=== PATIENT | male | born 1985 | race Caucasian/White ===

== ENCOUNTER 2019-09-11 18:45 | Inpatient (IN) | payer OTHER ==
[~2019-09-11] VITALS: Ht 170.2 cm; Wt 66.2 kg
[2019-09-11 18:59] VITALS: BP 129/97
[2019-09-11 19:25] LABS: ABSOLUTE LYMPHOCYTES 0.4 thou/uL (0.8-5.3); HEMOGLOBIN 15.5 gm/dL (14.0-18.0); MCHC 33.5 g/dL (28.0-37.0); RBC 4.69 mil/uL (4.50-6.00); RDW-CV 14.9 % (10.5-14.5)
[2019-09-11 19:26] LABS: ABSOLUTE MONOCYTES 0.7 thou/uL (0.0-1.2); ABSOLUTE NEUTROPHILS 4.9 thou/uL (1.6-8.1); BASOPHILS 0.1 %; EOSINOPHILS 0.1 %; HEMATOCRIT 46.3 % (42.0-52.0); LYMPHOCYTES 6.3 %; MCH 33.1 pg (26.0-34.0); MCV 98.7 fL (80.0-100.0); MONOCYTES 11.4 %; MPV 10.6 fl. (7.2-11.1); NUCLEATED RBCS 0 /100WBC; POLYS 82.1 %
[2019-09-11 19:32] LABS: CALCIUM 10.2 mg/dL (8.5-10.1); CREATININE 2.4 mg/dL (0.6-1.3); POTASSIUM 4.4 mmol/L (3.5-5.1)
[2019-09-11 19:37] LABS: ALBUMIN 5.5 g/dL (3.4-5.0); TOTAL BILIRUBIN 2.6 mg/dL (<0.1-1.0); TOTAL PROTEIN 10.5 g/dL (6.4-8.2)
[2019-09-11 19:58] LABS: PLATELET COUNT* 48 thou/uL (150-400)
[2019-09-11 20:19] LABS: APTT 25.2 Seconds (25.0-31.3); PROTIME 10.3 Seconds (9.20-11.50)
[2019-09-11 21:29] VITALS: BP 165/98
[2019-09-11 22:00] VITALS: BP 155/104
--- NOTE | 2019-09-11 22:30 | NUR ---
RECEIVED REPORT AND ADMITTED TO ROOM. SEE ADMISSION AND HX. PT CONT TO C/O ABD PAIN, STATES HITS LIKE A HARD CRAMP THEN GOES AWAY. OFFERED PAIN MED BUT NOT AT THIS TIME. TELEMETRY ON SR TO ST. WILL CONT TO MONITOR AND ASSIST NEEDED.
[2019-09-12 00:06] VITALS: BP 149/101
[2019-09-12 00:17] LABS: URINE BLOOD 1+ (Negative); URINE CLARITY CLEAR; URINE COLOR YELLOW; URINE GLUCOSE-RANDOM NEGATIVE (Negative); URINE LEUKOCYTES-REFLEX NEGATIVE (Negative); URINE NITRITE-REFLEX NEGATIVE (Negative); URINE PROTEIN 3+ (Negative); URINE SPECIFIC GRAVITY 1.015 (1.005-1.030); URINE UROBILINOGEN 0.2 E.U./dl (0.2-1.0)
[2019-09-12 00:20] LABS: URINE BILIRUBIN 3+ (Negative); URINE KETONES 3+ (Negative)
[2019-09-12 00:23] LABS: ACETEST (KETONE CONFIRMATORY) Moderate (Negative); ICTOTEST (BILI CONFIRMATORY) Positive (Negative)
[2019-09-12 00:27] LABS: HYALINE CASTS 4-10 Moderate /LPF (None Seen); SQUAMOUS NONE SEEN /LPF (0-3)
[2019-09-12 00:29] LABS: BACTERIA-REFLEX 1-9 Few /HPF (None Seen); URINE RBC 3-10 Few /HPF (0-2); URINE WBC-REFLEX 0-5 Rare /HPF (0-5)
[2019-09-12 00:30] LABS: CRYSTALS None Seen /LPF (None Seen)
[2019-09-12 04:33] VITALS: BP 147/104
--- NOTE | 2019-09-12 06:00 | NUR ---
SLEPT ALL NIGHT. WHEN UP TO BR HR INCREASED TO 160'S BUT RETURNED TO BED DOWN TO 90'S. NO FURTHER C/O DISCOMFORT. HS GOALS OF REST AND SAFETY ACHIEVED. HOURLY ROUNDING OBSERVED.
[2019-09-12 08:19] LABS: ABSOLUTE LYMPHOCYTES 0.5 thou/uL (0.8-5.3); ABSOLUTE MONOCYTES 0.5 thou/uL (0.0-1.2); ABSOLUTE NEUTROPHILS 2.8 thou/uL (1.6-8.1); BASOPHILS 0.3 %; EOSINOPHILS 0.3 %; LYMPHOCYTES 13.5 %; MCH 33.7 pg (26.0-34.0); MCHC 34.4 g/dL (28.0-37.0); MCV 98.1 fL (80.0-100.0); MPV 10.5 fl. (7.2-11.1); NUCLEATED RBCS 0 /100WBC; POLYS 73.9 %; RBC 3.88 mil/uL (4.50-6.00); RDW-CV 14.9 % (10.5-14.5); WBC 3.8 thou/uL (4.0-11.0)
[2019-09-12 08:31] LABS: HEMOGLOBIN 13.1 gm/dL (14.0-18.0)
[2019-09-12 08:33] LABS: PLATELET COUNT* 31 thou/uL (150-400)
[2019-09-12 08:41] LABS: ALBUMIN 4.2 g/dL (3.4-5.0); CALCIUM 8.9 mg/dL (8.5-10.1); CREATININE 1.5 mg/dL (0.6-1.3); POTASSIUM 3.9 mmol/L (3.5-5.1); TOTAL BILIRUBIN 2.3 mg/dL (<0.1-1.0); TOTAL PROTEIN 8.3 g/dL (6.4-8.2)
[2019-09-12 12:24] VITALS: BP 138/98
--- NOTE | 2019-09-12 16:23 | EKG ---
[place] [address] ELECTROCARDIOGRAM REPORT Name: JASPREET MCKEON Room: [address] IN M.R.#: [id number] Admission: 09/11/19 Attend Phys: Rosa gomez Sa Discharge: Date of : 87 Date of Service: 09/11/191920 Report #: [id number] THIS REPORT FOR: //name// [facility] ED Test Date: 2019-09-11 Test Time: 19:21:18 Pat Name: JASPREET MCKEON Department: Room: [facility] Gender: M Bpm Analyst: [place] : 1985 Requested By: Mau Gonzalez Order Number: [id number] MD: Ulices Altamirano Measurements Intervals [place] Rate: 123 P: 60 W[place]: 124 QRS: 59 QRSD: 92 T: -63 QT: 306 QTc: 438 Interpretive Statements Sinus tachycardia Nonspecific T abnormalities, diffuse leads No previous ECG available for comparison Electronically Signed On 09-12-2019 16:21:26 CDT by Ulices Altamirano [email or web address] <ELECTRONICALLY SIGNED> By: Ulices Altamirano MD, [facility] 09/12/19 1621 20 20 Ulices Altamirano MD, [facility] /EPI
[2019-09-12 17:07] VITALS: BP 139/94
--- NOTE | 2019-09-12 18:30 | NUR ---
ASSUMED PT CARE AT 0700, PT A&O X4, VSS, RA, [employer] TRACING SINUS RHYTHM, UP AD BONNIE, NO S/S WITHDRAWL. PT EDUCATED ON NPO STATUS, STATES UNDERSTANDING, HOURLY ROUNDING COMPLETED.
[2019-09-12 20:00] VITALS: BP 141/93
[2019-09-13] VITALS (7 sets, daily range): BP systolic 129–152; BP diastolic 89–102
--- NOTE | 2019-09-13 05:10 | NUR ---
PT IS ABLE TO COMMUNICATE HIS NEEDS TO STAFF EFFECTIVELY. CURRENT PAIN MEDICATION REGIMEN HAS BEEN ADEQUATE FOR CONTROLLING HIS PAIN UP TO THIS TIME. HE HAS BEEN NPO PER MD ORDERS D/T PANCREATITIS; HE HAS HAD SOME ICE CHIPS-TOLERATING WELL.
[2019-09-13 05:20] LABS: HEMATOCRIT 34.7 % (42.0-52.0); HEMOGLOBIN 11.7 gm/dL (14.0-18.0); MCH 33.6 pg (26.0-34.0); MCHC 33.8 g/dL (28.0-37.0); MCV 99.3 fL (80.0-100.0); MPV 9.3 fl. (7.2-11.1); RBC 3.5 mil/uL (4.50-6.00); WBC 2.9 thou/uL (4.0-11.0)
[2019-09-13 05:40] LABS: ALBUMIN 3.5 g/dL (3.4-5.0); CALCIUM 8.6 mg/dL (8.5-10.1); CREATININE 1.2 mg/dL (0.6-1.3); MAGNESIUM 2.9 mg/dL (1.8-2.4); POTASSIUM 3.1 mmol/L (3.5-5.1); TOTAL BILIRUBIN 2.3 mg/dL (<0.1-1.0); TOTAL PROTEIN 7.2 g/dL (6.4-8.2)
[2019-09-13 09:46] LABS: CHOLESTEROL 183 mg/dL (<200); HDL CHOLESTEROL 63 mg/dL (>40); LDL CHOLESTEROL 106 mg/dL (<100); TC:HDL 2.9 Ratio (Not establshd); TRIGLYCERIDE 73 mg/dL (<150); VLDL 15 mg/dL (<40)
[2019-09-13 09:48] LABS: SERUM ASSESSMENT Clear
--- NOTE | 2019-09-13 12:44 | NUR ---
Nutrition: Pt admitted with pancreatitis. H/o heavy ETOH use. Seen for nsg risk 2 points. Pt stated he lost about 14# this week d/t N/V. He lost a little weight "last time I had a flare up too, but regained it." He is tolerating CLD now. Usual wt is ~150#. Current wt 138#. Labs: lipase 2510, albumin 3.5. He did have interest in nutrition info. Discussed plate method, general healthy eating and low Na diet with him. Provided tips on quick lunches and adding more vitamins in your foods. Pt grateful for info. Appears at low to mild risk. May benefit from outpatient nutrition counseling for good lifestyle habits.
[2019-09-13 22:07] LABS: HEMOGLOBIN 13.4 g/dL (13.0-17.7)
[2019-09-14 00:49] VITALS: BP 143/101
[2019-09-14 04:00] VITALS: BP 146/95
--- NOTE | 2019-09-14 07:51 | NUR ---
PT IS ABLE TO COMMUNICATE HIS NEEDS TOP STAFF EFFECTIVELY. CURRENT PAIN MEDICATION REGIMEN HAS BEEN ADEQUATE FOR CONTROLLING HIS PAIN UP TO THIS TIME. SERUM LIPASE LEVEL HAS INCREASED AGAIN THIS AM. CLEAR LIQUID DIET MAINTAINED OVERNIGHT.
[2019-09-14 08:31] LABS: ABSOLUTE LYMPHOCYTES 0.8 thou/uL (0.8-5.3); ABSOLUTE MONOCYTES 0.3 thou/uL (0.0-1.2); ABSOLUTE NEUTROPHILS 1.1 thou/uL (1.6-8.1); BASOPHILS 0.9 %; EOSINOPHILS 1.4 %; HEMATOCRIT 31.1 % (42.0-52.0); HEMOGLOBIN 10.7 gm/dL (14.0-18.0); LYMPHOCYTES 35.8 %; MCH 34.3 pg (26.0-34.0); MCHC 34.6 g/dL (28.0-37.0); MCV 99.3 fL (80.0-100.0); MONOCYTES 12.6 %; MPV 9.7 fl. (7.2-11.1); NUCLEATED RBCS 0 /100WBC; POLYS 49.3 %; RBC 3.13 mil/uL (4.50-6.00); RDW-CV 14.2 % (10.5-14.5); WBC 2.3 thou/uL (4.0-11.0)
[2019-09-14 08:35] LABS: PLATELET COUNT* 24 thou/uL (150-400)
[2019-09-14 14:13] VITALS: BP 138/104
[2019-09-14 16:00] VITALS: BP 150/101
--- NOTE | 2019-09-14 17:24 | NUR ---
SW met with pt and provided community resources and alcohol abuse support and counseling resources/referrals. Pt was accepting and thankful for the resources.
[2019-09-14 19:21] LABS: ABSOLUTE LYMPHOCYTES 0.6 thou/uL (0.8-5.3); ABSOLUTE MONOCYTES 0.3 thou/uL (0.0-1.2); ABSOLUTE NEUTROPHILS 1.4 thou/uL (1.6-8.1); EOSINOPHILS 1.3 %; HEMATOCRIT 32.6 % (42.0-52.0); HEMOGLOBIN 11.4 gm/dL (14.0-18.0); LYMPHOCYTES 26.8 %; MCH 34.2 pg (26.0-34.0); MCHC 35.1 g/dL (28.0-37.0); MCV 97.5 fL (80.0-100.0); MONOCYTES 13.8 %; MPV 9.7 fl. (7.2-11.1); NUCLEATED RBCS 0 /100WBC; POLYS 57.1 %; RBC 3.34 mil/uL (4.50-6.00); RDW-CV 13.6 % (10.5-14.5); WBC 2.4 thou/uL (4.0-11.0)
[2019-09-14 19:25] LABS: PLATELET COUNT* 30 thou/uL (150-400)
[2019-09-14 19:30] LABS: CALCIUM 8.6 mg/dL (8.5-10.1); CREATININE 0.8 mg/dL (0.6-1.3); POTASSIUM 3.2 mmol/L (3.5-5.1)
[2019-09-14 19:35] LABS: ALBUMIN 3.2 g/dL (3.4-5.0); DIRECT BILIRUBIN 0.5 mg/dL (<0.1-0.3); TOTAL BILIRUBIN 1.8 mg/dL (<0.1-1.0); TOTAL PROTEIN 6.7 g/dL (6.4-8.2)
[2019-09-14 20:34] VITALS: BP 152/92
[2019-09-14 21:17] LABS: APTT 25.5 Seconds (25.0-31.3); INR 1.1; PROTIME 10.9 Seconds (9.20-11.50)
[2019-09-15 00:40] VITALS: BP 148/101
[2019-09-15 04:00] VITALS: BP 139/96
[2019-09-15 04:52] LABS: HEMATOCRIT 30.6 % (42.0-52.0); HEMOGLOBIN 10.6 gm/dL (14.0-18.0); MCH 34.5 pg (26.0-34.0); MCHC 34.8 g/dL (28.0-37.0); MCV 99.2 fL (80.0-100.0); MPV 10.2 fl. (7.2-11.1); RBC 3.08 mil/uL (4.50-6.00); RDW-CV 14.1 % (10.5-14.5); WBC 2.6 thou/uL (4.0-11.0)
[2019-09-15 05:14] LABS: ALBUMIN 3.1 g/dL (3.4-5.0); CALCIUM 8.4 mg/dL (8.5-10.1); CREATININE 0.7 mg/dL (0.6-1.3); MAGNESIUM 1.8 mg/dL (1.8-2.4); POTASSIUM 3.2 mmol/L (3.5-5.1); TOTAL BILIRUBIN 1.5 mg/dL (<0.1-1.0); TOTAL PROTEIN 6.4 g/dL (6.4-8.2)
--- NOTE | 2019-09-15 07:51 | NUR ---
PT IS ABLE TO COMMUNICATE HIS NEEDS TO STAFF EFFECTIVELY. CURRENT PAIN MEDICATION REGIMEN HAS BEEN ADEQUATE FOR CONTROLLING HIS PAIN UP TO THIS TIME. HEMATOLOGY/ONCOLOGY MDs FOLLOWING. HE HAS BEEN NPO, FOR ELEVATED LIPASE, PER MD ORDER.
[2019-09-15 08:00] VITALS: BP 136/99
[2019-09-15 11:23] VITALS: BP 154/100
[2019-09-15 15:21] VITALS: BP 134/96
[2019-09-15 19:40] VITALS: BP 118/83
[2019-09-16] VITALS (7 sets, daily range): BP systolic 125–147; BP diastolic 78–101
[2019-09-16 03:08] LABS: HEPATITIS B SURFACE AG Negative (Negative)
--- NOTE | 2019-09-16 04:55 | NUR ---
ASSUMED CARE OF PT AT 1900. PT IS ALERT AND ORIENTED. VSS. PERRLA. PT IS UP AD BONNIE. PT IS IN SINUS RYTHM ON THE TELEMETRY. PT IS RESTING COMFORTABLY IN BED. RESPIRATIONS ARE EVEN AND NONLABORED. WILL CONTINUE TO MONITOR PT.
[2019-09-16 05:07] LABS: HEMATOCRIT 29.9 % (42.0-52.0); HEMOGLOBIN 10.3 gm/dL (14.0-18.0); MCH 34.1 pg (26.0-34.0); MCHC 34.5 g/dL (28.0-37.0); MCV 99.1 fL (80.0-100.0); MPV 10.4 fl. (7.2-11.1); RBC 3.02 mil/uL (4.50-6.00); RDW-CV 14.1 % (10.5-14.5); WBC 2.4 thou/uL (4.0-11.0)
[2019-09-16 05:18] LABS: CALCIUM 8.2 mg/dL (8.5-10.1); CREATININE 0.8 mg/dL (0.6-1.3); MAGNESIUM 1.6 mg/dL (1.8-2.4); TOTAL BILIRUBIN 0.8 mg/dL (<0.1-1.0); TOTAL PROTEIN 6.3 g/dL (6.4-8.2)
[2019-09-16 05:49] LABS: POTASSIUM 2.8 mmol/L (3.5-5.1)
[2019-09-16 12:18] LABS: CALCIUM 8.4 mg/dL (8.5-10.1); CREATININE 0.8 mg/dL (0.6-1.3); POTASSIUM 3.7 mmol/L (3.5-5.1)
--- NOTE | 2019-09-16 20:19 | NUR ---
ASSUMED PT CARE AT 729, FULL ASSESMENT DONE CHARTED. PT A/O X4, UP AD BONNIE, DENIES PAIN. HOPEFUL TO GO HOME TODAY. SPOKE TO , WANTS PT TO RECEIVE MORE FLUIDS. PT AWARE. CALLS APPROPRIATLY FOR NEEDS. NEW IV STARTED IN RFA. VOIDING PER URINAL. REPORT GIVEN TO RAYSA DIAZ.
[2019-09-17 04:00] VITALS: BP 119/89
[2019-09-17 04:33] LABS: CALCIUM 8.7 mg/dL (8.5-10.1); CREATININE 1.1 mg/dL (0.6-1.3); POTASSIUM 3.7 mmol/L (3.5-5.1)
[2019-09-17 07:30] VITALS: BP 143/100
[2019-09-17 09:48] LABS: ABSOLUTE LYMPHOCYTES 0.2 thou/uL (0.8-5.3); ABSOLUTE MONOCYTES 0.5 thou/uL (0.0-1.2); ABSOLUTE NEUTROPHILS 1.9 thou/uL (1.6-8.1); BASOPHILS 0.6 %; EOSINOPHILS 0.2 %; HEMATOCRIT 32.5 % (42.0-52.0); HEMOGLOBIN 11.4 gm/dL (14.0-18.0); LYMPHOCYTES 7.4 %; MCH 34.1 pg (26.0-34.0); MCV 97.3 fL (80.0-100.0); MONOCYTES 18.2 %; MPV 9.8 fl. (7.2-11.1); NUCLEATED RBCS 0 /100WBC; PLATELET COUNT* 66 thou/uL (150-400); POLYS 73.6 %; RBC 3.34 mil/uL (4.50-6.00); RDW-CV 14.5 % (10.5-14.5); WBC 2.6 thou/uL (4.0-11.0)
[2019-09-17 09:53] LABS: CALCIUM 8.6 mg/dL (8.5-10.1); CREATININE 1.1 mg/dL (0.6-1.3); POTASSIUM 3.9 mmol/L (3.5-5.1)
[2019-09-17 12:00] VITALS: BP 117/75
[2019-09-17 16:46] VITALS: BP 139/56
[2019-09-17 19:30] VITALS: BP 117/67
[2019-09-18] VITALS (7 sets, daily range): BP systolic 120–130; BP diastolic 78–96
--- NOTE | 2019-09-18 02:39 | NUR ---
ASSUMED CARE OF PT AT 1900. PT IS ALERT AND ORIENTED. VSS. PERRLA. PT IS NPO. PT IS IN SINUS RYTHM ON THE TELEMETRY. PT IS RESTING COMFORTABLY IN BED. RESPIRATIONS ARE EVEN AND NONLABORED. WILL CONTINUE TO MONITOR PT.
[2019-09-18 04:53] LABS: HEMATOCRIT 31.9 % (42.0-52.0); MCH 34.3 pg (26.0-34.0); MCHC 34.6 g/dL (28.0-37.0); MCV 99.1 fL (80.0-100.0); MPV 10.6 fl. (7.2-11.1); RBC 3.22 mil/uL (4.50-6.00); RDW-CV 14.1 % (10.5-14.5); WBC 2.5 thou/uL (4.0-11.0)
[2019-09-18 05:28] LABS: ALBUMIN 3.2 g/dL (3.4-5.0); CALCIUM 8.6 mg/dL (8.5-10.1); MAGNESIUM 1.9 mg/dL (1.8-2.4); POTASSIUM 4.1 mmol/L (3.5-5.1); TOTAL BILIRUBIN 0.5 mg/dL (<0.1-1.0)
--- NOTE | 2019-09-18 08:56 | NUR ---
ASSUMED CARE OF PT THIS AM AROUND 0715- SHOT BAGGER IN PLACE ORDERED, TRACING SR- UPON ASSESSMENT PT NOTED TO BE RESTING IN BED, WATCHING TV- PT A&O X4- CONT OF BOWEL AND BLADDER- UP AD-BONNIE IN ROOM, STEADY GAIT NOTED- DIMINISHED LUNG SOUNDS, RESP EVEN AND UN-LABORED- VSS, O2 SAT 99% ON RA- ABD SOFT/ROUND/NON-TENDER, BS X4 QUADS- LAST BM REPORTED 09/17/19- IV NOTED TO RIGHT FA INTACT, IVF INFUSSING PRESCRIBED- PT CURRENLTY NPO FOR PLANNED PIPIDA SCAN THIS SHIFT- PT DENIES ANY C/O PAIN/DISCOMFORT AT THIS TIME- CALL LIGHT AND PERSONAL BELONGINGS WITH IN REACH- PT MAKES NEEDS KNOWN- ALL NEEDS MET AT THIS TIME-WCTM
--- NOTE | 2019-09-18 13:13 | NUR ---
PT.UP AD BONNIE IN ROOM. LIPASE STILL ELEVATED. TESTING CONTINUES. CM SPOKE WITH HIM. HE SAID HE HAD NO CONCERNS AT THIS TIME.
--- NOTE | 2019-09-18 15:51 | CON ---
[facility] [address] [place] [address] CONSULTATION Name: JASPREET MCKEON Room: [address] IN M.R.#: [id number] Admission: 09/11/19 Attend Phys: Rosa Bowden Discharge: Date of : 87 Report #: [id number] THIS REPORT FOR: //name// cc: SERGIO Greenberg family physician/PCP SERGIO Greenberg family physician/PCP ~ THIS REPORT FOR: //name// CC: SERGIO physician/PCP Rosa Mccain DATE OF SERVICE: 09/14/2019 REFERRING PHYSICIAN: Rosa Mccain M.D. The patient has no primary care provider. REASON FOR CONSULTATION: Abdominal pain. IMPRESSION: 1. Acute alcoholic pancreatitis, which appears to be slowly improving. 2. Pancytopenia of uncertain etiology without evidence for portal hypertension noted on CT scan. 3. Hepatomegaly with fatty liver due to chronic alcohol abuse. RECOMMENDATIONS: 1. Agree with the patient getting IV fluids, pain medications, antiemetics, etc. 2. We will slowly advance the patient's diet as tolerated once able to tolerate heart healthy diet and his pain to be controlled with oral pain medications, he can be discharged home. 3. I will give him oral pain medication. Avoid all nonsteroidals. If his pain is unrelieved, he can get IV pain medications. 4. The patient needs to completely stop alcohol altogether with need for outpatient treatment program upon discharge. I have discussed the plans with the patient as well and he is in agreement with the same. I spent about 20 minutes talking with him about the need to discontinue alcohol altogether. HISTORY OF PRESENT ILLNESS: The patient is a 33-year-old white male who was admitted to the hospital for the first time with complaints of rather severe upper abdominal pain associated with nausea and vomiting. He has never had anything like this in the past. He does have some intermittent reflux that has been severe. He has no prior history of any problems related to his upper or lower GI tract or hepatobiliary or pancreas. He has never really been hospitalized for anything. He was brought to the hospital because of problems with these issues and found to have pancreatitis. He had been feeling poorly for several days. He had similar episode several months ago, [place] [address] CONSULTATION Name: JASPREET MCKEON Ron Room: [address] IN [facility]#: [id number] Admission: 09/11/19 Attend Phys: Rosa Bowden Discharge: Date of : 87 Report #: [id number] [employer]. Does drink alcohol on a regular basis. He was admitted to hospital for further evaluation and treatment. ALLERGIES: None. MEDICATIONS: At home, none. PAST MEDICAL AND SURGICAL HISTORY: Negative except for chronic alcohol abuse. SOCIAL HISTORY: The patient does not smoke. He drinks alcohol and has done so for quite some time. FAMILY HISTORY: Negative for alcoholism. PHYSICAL EXAMINATION: GENERAL: Revealed a 33-year-old gentleman who appears older than his stated age. CARDIOPULMONARY: Revealed a regular rate and rhythm. LUNGS: Clear. ABDOMEN: Soft, is mildly tender in the upper abdomen. No rebound or guarding noted. LABORATORY DATA: Revealed a white count today of 2.3; hemoglobin 10.7; platelet count 24,000; MCV is 99.3; RDW is 14.2. The differential is normal. His complete metabolic panel: Sodium 136, potassium 3.2, chloride 101, bicarbonate 25, BUN 7, creatinine 0.8. His total bilirubin is 1.8, alkaline phosphatase 53, AST is 115, ALT 60. His albumin is 3.2. His cholesterol is 183, triglycerides are only 73. His lipase on admission was 2749 and went up to ____ today. IMAGING STUDIES: Abdominal ultrasound performed on the revealed inflammatory change noted around the pancreatic head. The gallbladder was distended and demonstrates some sludge without any definite ____ calculi. There is no evidence for ductal dilation. CT scan revealed mild stranding at the level of the descending duodenum extending caudally for several centimeters compatible with pancreatitis. He does have hepatomegaly with diffuse hepatic steatosis. His spleen appears normal. DISCUSSION: At the present time, the patient had alcoholic pancreatitis, needs to discontinue alcohol together. I have discussed the plans with the patient as well and we will follow him expectantly. At this time, we have no plans for any endoscopic studies. <ELECTRONICALLY SIGNED> By: Tom Avina DO 09/18/19 1551 2150 [id number] Avina DO /nt
--- NOTE | 2019-09-19 01:43 | NUR ---
VSS. ASSESSMENT COMPLETED CHARTED. SEE MAR. HOURLY ROUNDING FOR SAFETY.
--- NOTE | 2019-09-19 02:00 | NUR ---
ASSUMED PT CARE FROM WILL RN. PT RESTING WITH EYES CLOSED, NO SIGNS OF DISTRESS NOTED. TELE SR. WILL CONTINUE TO MONITOR AND PROVIDE CARES NEEDED. CALL LITE IN EASY REACH.
[2019-09-19 04:00] VITALS: BP 116/77
--- NOTE | 2019-09-19 07:33 | NUR ---
PT SLEPT WELL SINCE I ASSUMED CARE OF PT. AWAKENED THIS MORNING FOR MEDS, PT DENIES PAIN OR PROBLEMS. STATES HE IS TOLERATING DIET WITHOUT N/V. R FA IV SL. AM LABS TO BE DRAWN. PT HOPEFUL FOR DISCHARGE HOME TODAY. CALL LITE IN EASY REACH. TELE SR.
[2019-09-19 08:00] VITALS: BP 107/84
--- NOTE | 2019-09-19 08:00 | NUR ---
ASSUMED CARE OF PATIENT FROM NIGHT NURSE. PT IS DOING WELL WITH NO CO OF PAIN OR NAUSEA AT THIS TIME. HE WAS EDUCATED ON FALL SAFETY AND USING THE CALL LIGHT FOR ASSISTANCE. DISCHARGE PLANNING TODAY, WILL CONTINUE TO MONITOR.
[2019-09-19 09:41] LABS: HEMATOCRIT 34.5 % (42.0-52.0); HEMOGLOBIN 11.8 gm/dL (14.0-18.0); MCH 33.8 pg (26.0-34.0); MCHC 34.2 g/dL (28.0-37.0); MCV 98.9 fL (80.0-100.0); MPV 10.3 fl. (7.2-11.1); RBC 3.49 mil/uL (4.50-6.00); RDW-CV 14.4 % (10.5-14.5)
[2019-09-19 10:00] LABS: ALBUMIN 3.5 g/dL (3.4-5.0); CALCIUM 9.2 mg/dL (8.5-10.1); POTASSIUM 3.7 mmol/L (3.5-5.1); TOTAL BILIRUBIN 0.4 mg/dL (<0.1-1.0); TOTAL PROTEIN 7.9 g/dL (6.4-8.2)
[2019-09-19 12:40] VITALS: BP 107/84
[2019-09-19 12:49] VITALS: BP 107/84
--- NOTE | 2019-09-19 13:30 | NUR ---
PT WAS DISCHARGED HOME WITH AND ALL BELONGINGS. PT WAS GIVEN DISCHARGE PLANNING AND A LIST OF HOME MEDICATIONS.
== END 2019-09-19 12:50 | disposition home or self-care (01) | DRG 438 ==
LOC: M.ERS 18:45 → M.TBA-ER 21:02 → M.2W 21:02
PROVIDERS: Family Medicine; Internal Medicine; Internal Medicine Gastroenterology; Internal Medicine Hematology & Oncology; ADMIT Family Medicine
DX: K85.20 Alcohol induced acute pancreatitis without necrosis or infection (principal); R65.11 Systemic inflammatory response syndrome (SIRS) of non-infectious origin with acute organ dysfunction; N17.0 Acute kidney failure with tubular necrosis; E87.2 Acidosis; F10.10 Alcohol abuse, uncomplicated; Y90.9 Presence of alcohol in blood, level not specified; D69.6 Thrombocytopenia, unspecified; K70.0 Alcoholic fatty liver; E86.0 Dehydration

== ENCOUNTER 2020-02-24 10:27 | Emergency (ER) | payer OTHER ==
[~2020-02-24] VITALS: Ht 170.2 cm; Wt 66.7 kg
[2020-02-24] MEDS ORDERED: MICARDIS 20MG T20 M1 PO (10:50)
[2020-02-24 11:53] LABS: ABSOLUTE LYMPHOCYTES 0.3 thou/uL (0.8-5.3); ABSOLUTE MONOCYTES 0.7 thou/uL (0.0-1.2); ABSOLUTE NEUTROPHILS 3.3 thou/uL (1.6-8.1); BASOPHILS 0.4 %; HEMATOCRIT 44.3 % (42.0-52.0); HEMOGLOBIN 14.8 gm/dL (14.0-18.0); LYMPHOCYTES 7.9 %; MCH 34.5 pg (26.0-34.0); MCHC 33.4 g/dL (28.0-37.0); MCV 103.6 fL (80.0-100.0); MONOCYTES 15.9 %; MPV 9.4 fl. (7.2-11.1); NUCLEATED RBCS 0 /100WBC; PLATELET COUNT* 70 thou/uL (150-400); POLYS 75.8 %; RBC 4.28 mil/uL (4.50-6.00); RDW-CV 15.5 % (10.5-14.5); WBC 4.3 thou/uL (4.0-11.0)
[2020-02-24 12:01] LABS: CALCIUM 10.4 mg/dL (8.5-10.1); CREATININE 1.6 mg/dL (0.6-1.3); POTASSIUM 4.6 mmol/L (3.5-5.1)
[2020-02-24 12:06] LABS: ALBUMIN 5.4 g/dL (3.4-5.0); TOTAL BILIRUBIN 2.7 mg/dL (<0.1-1.0); TOTAL PROTEIN 10.8 g/dL (6.4-8.2)
[2020-02-24 12:20] LABS: PLATELET ESTIMATE DECREASED
[2020-02-24] MEDS ORDERED: ZOFRAN ODT4 MG SUBLING (14:33)
[2020-02-24] MEDS ORDERED: NORCO 5-325 TA1 EAC2 PO (14:33)
[2020-02-24 14:55] VITALS: BP 126/96
== END 2020-02-24 14:51 | disposition home or self-care (01) ==
LOC: M.ERS 10:27
PROVIDERS: Family Medicine
DX: R10.30 Lower abdominal pain, unspecified (principal); R11.2 Nausea with vomiting, unspecified; I10 Essential (primary) hypertension

== ENCOUNTER → 2020-03-01 | Outpatient (CLI) | payer OTHER ==
[~2020-03-01] MED LIST: MICARDIS 20MG T20 M1 PO; NORCO 5-325 TA1 EAC2 PO; ZOFRAN ODT4 MG SUBLING
== END ==
LOC: M.LAB 11:29
PROVIDERS: ATTEND Surgery
DX: Z01.812 Encounter for preprocedural laboratory examination (principal); Z20.828 Contact with and (suspected) exposure to other viral communicable diseases; K80.20 Calculus of gallbladder without cholecystitis without obstruction

== ENCOUNTER → 2020-03-06 | Day surgery (SDC) | payer OTHER ==
[~2020-03-06] MED LIST changes: +OXYCODONE HCL 55 MG PO
--- NOTE | 2020-03-11 10:06 | PATH ---
[address] [address] PATHOLOGY RPT PROCEDURE Name: JASPREET BALDERAS Room: [facility]#: [id number] Admission: 03/06/20 Date of : 87 Discharge: Report #: [id number] Path Case #: [id number] [facility] Accession Number: [id number] . 01 Material submitted: . gallbladder - GALLBLADDER AND CONTENTS . 01 Clinical history: . CHOLELITHIASIS . 02 Diagnosis: "Gallbladder and contents", cholecystectomy: - Chronic cholecystitis. - Cholelithiasis. . (CLW:mml; 03/08/2020) [facility] 03/08/2020 1657 Local . 02 Electronically signed: . Hayde Mensah MD, Pathologist NPI- [id number] . 01 Gross description: . Received in formalin labeled "Jaspreet Balderas, gallbladder and contents" is an intact cholecystectomy specimen measuring 6.6 x 3.0 x 2.7 cm. The serosa is wallace-purple and smooth and the specimen is opened to reveal wallace-green velvety mucosa without polyps or masses. The average wall thickness is 0.1 cm. Multiple roughened black calculi are present within the gallbladder, measuring in aggregate 1.0 x 0.8 x 0.3 cm and ranging from 0.1-0.3 cm in greatest dimension. Daub Color Mixer sections of the fundus and body and the cystic duct margin are submitted in A1. [place] [place] [facility] 03/07/20201954 Local . 02 Pathologist provided ICD-10: K80.10 . 02 CPT . 847396 Specimen Comment: A courtesy copy of this report has been sent to [phone] Specimen Comment: [id number] Specimen Comment: Report sent to / DR PALOMO Performed at: [address] [id number] MD Unruly Saxena MD Phone: [phone] Performed at: [address] [place] [address] PATHOLOGY RPT PROCEDURE Name: JASPREET BALDERAS Room: [facility].#: [id number] Admission: 03/06/20 Date of : 87 Discharge: Report #: [id number] Path Case #: [id number] [facility] [address], [place], [place] [id number] MD Sakshi Smith MD Phone: [phone]
--- NOTE | 2020-03-12 08:58 | OP ---
[address] [address] OPERATIVE REPORT Name: JASPREET MCKEON Ron Room: [facility]#: [id number] Admission: 03/06/20 Attend Phys: Hortencia Hightower Discharge: Date of : 87 Report #: [id number] THIS REPORT FOR: //name// cc: Mandi Tate MD, Tuongvan T. MD ~ CC: Steve Tate MD DICTATED BY: Nishant Ferguson DO DATE OF SERVICE: 03/06/2020 PREOPERATIVE DIAGNOSIS: Recurrent pancreatitis. POSTOPERATIVE DIAGNOSIS: Recurrent pancreatitis. SURGEON: Steve Mcleod DO [employer] SALES REPRESENTATIVE: Nishant Ferguson DO, PGY5 OPERATION PERFORMED: Laparoscopic cholecystectomy. ANESTHESIA: General, regional and local. ESTIMATED BLOOD LOSS: 10 mL. SPECIMEN: Gallbladder. COMPLICATIONS: None. INDICATIONS: The patient is a 34-year-old male with multiple episodes of elevated bilirubin and pancreatitis in the setting of chronic alcohol abuse. The patient was informed of the risks and benefits of laparoscopic cholecystectomy with risks, including but not limited to bleeding, infection, bile duct injury, bowel injury, need for open procedure, hernia formation, and chronic diarrhea. He voiced understanding of these risks and elected to proceed with surgery. TECHNIQUE: After informed consent was obtained, the patient was brought to the operating room and placed in supine position. SCDs were on and running. Preoperative antibiotics were given. General anesthesia was administered with an ET tube. The patient was prepped and draped in the usual sterile fashion. A surgical pause was held to confirm proper patient and procedure. Infraumbilical horizontal incision was made with an 11 blade. Dissection was carried through the subcutaneous tissue using S retractors until the fascia was identified. [address] [address] OPERATIVE REPORT Name: JASPREET MCKEON Room: [facility]#: [id number] Admission: 03/06/20 Attend Phys: Hortencia Hightower Discharge: Date of : 87 Report #: [id number] Fascia was scored using cautery and elevated with 2 Kochers. Peritoneum was bluntly entered using a Tessie. An 0 Vic[address] was used to place stay sutures on either side of the fascia. Bernardo trocar was introduced into the abdomen. The abdomen was insufflated. The patient was positioned head up and right side up. A camera was introduced into the abdomen. Attention was turned towards the right upper quadrant. The gallbladder was not acutely inflamed. There were no adhesions to the gallbladder. A 5-mm port was placed in the epigastrium under direct visualization. Two additional 5-mm ports were placed in the right upper qudrant under direct visualization. The gallbladder was elevated over the liver. The peritoneum overlying the hepatocystic triangle and Josué's pouch was incised using cautery. The plane was developed laterally and medially. Blunt dissection was used to circumferentially dissect the cystic duct and the cystic artery. [place] dissector was used to complete this dissection. Critical view safety was obtained with 2 and only 2 structures entering the gallbladder, the cystic duct and the cystic artery. The clip business support specialist was used to fire 3 proximal clips across the cystic duct and one distal clip. Next, one distal and proximal clip was placed on the cystic artery. Both structures were then divided using laparoscopic yue. There was a large cystic duct and to ensure that the clips were intact and the cystic duct would be adequately closed, an 0 PDS Endoloop was fired proximal to our 3 clips and secured. The remainder of the suture was cut and removed. The gallbladder was then elevated and dissected free from the liver bed. There was a small posterior branch of the cystic artery that was isolated. This was singly clipped and divided using cautery. The gallbladder was completely excised from the liver bed, placed within an EndoCatch bag and placed aside. The liver bed was inspected; it was hemostatic. The clips were inspected and hemostatic. There was no bile leak. The right upper quadrant was thoroughly irrigated and suctioned. The patient was repositioned supine. The abdomen was desufflated. All ports were removed under direct visualization. The gallbladder was removed through the umbilical incision. Previous stay sutures were elevated. A single [id number] using 0 Vicryl was used to close the fascia. Previous stay sutures were removed. The umbilical incision was closed in layered fashion using 3-0 Vicryl, 4-0 Monocryl. The remainder of skin was closed using 4-0 Monocryl. Wounds were cleansed and dressed with Dermabond. All counts were correct. The patient tolerated the procedure well without any complications. <ELECTRONICALLY SIGNED> By: Steve Mcleod DO 03/12/20 0858 1103 [id number] Mcleod DO /nt
== END | disposition home or self-care (01) ==
LOC: M.SUR 07:28
PROVIDERS: ATTEND Surgery
DX: K80.10 Calculus of gallbladder with chronic cholecystitis without obstruction (principal); K85.90 Acute pancreatitis without necrosis or infection, unspecified; I10 Essential (primary) hypertension; Z79.899 Other long term (current) drug therapy; Z98.890 Other specified postprocedural states

== ENCOUNTER 2020-05-14 00:14 | Inpatient (IN) | payer OTHER ==
[~2020-05-14] VITALS: Ht 170.2 cm; Wt 67.6 kg
--- NOTE | ~2020-05-14 | CON ---
[address] [address] CONSULTATION Name: JASPREET MCKEON Ron Room: [address] IN Miguel[facility]Sera.#: [id number] Admission: 05/14/20 Attend Phys: Miguel Swenson Discharge: Date of : 87 Report #: [id number] THIS REPORT FOR: cc: Mandi Tate MD, Tuongvan T. MD ~ John Campa MD DATE OF SERVICE: 05/14/2020 NEPHROLOGY CONSULTATION CONSULT REQUESTED BY: Dr. Morel. REASON FOR CONSULTATION: Acute kidney injury and hyperkalemia. HISTORY OF PRESENT ILLNESS: A 34-year-old gentleman with a history of alcoholic pancreatitis, comes in with alcoholic pancreatitis, was having some epigastric abdominal pain, has received aggressive IV hydration, initially had a bicarbonate of less than 10 and a potassium of 7.3 and a creatinine of 1.8. With hydration and bicarbonate, these numbers have improved. He currently appears to be comfortable, fatigued. Denies any recent trauma or illicit drug use. No other complaints, appears to be comfortable. REVIEW OF SYSTEMS: Constitutional, psych, heme, eyes, ENT, respiratory, cardiac, GI, , endocrine, all negative except as documented above. PAST MEDICAL HISTORY: Alcoholic pancreatitis, history of thrombocytopenia. SOCIAL HISTORY: Positive for heavy alcohol, denies any illicit drugs. FAMILY HISTORY: Noncontributory in this 34-year-old gentleman. CURRENT MEDICATIONS: Reviewed. PHYSICAL EXAMINATION: VITAL SIGNS: Blood pressure is 134/106, pulse 123, respirations 18 and temperature 36.7. GENERAL: No acute distress. EYES: Open. EARS: Externally normal. NECK: Supple. CARDIOVASCULAR: Tachycardia. LUNGS: Diminished breath sounds. ABDOMEN: Soft. MUSCULOSKELETAL: Nontender. [address] [address] CONSULTATION Name: JASPREET MCKEON Room: [address] IN [facility]#: [id number] Admission: 05/14/20 Attend Phys: Miguel Swenson Discharge: Date of : 87 Report #: [id number] PSYCHIATRIC: Awake, alert. LABORATORY DATA: Sodium 134, potassium 4.1, chloride 100, bicarbonate 10, BUN 10, creatinine 1.3, glucose 276, calcium 8.9. AST 226, ALT 53, albumin 4.1. UDS is negative. White cell count 9.1, hemoglobin 15.3, and platelets 70. ASSESSMENT: 1. Acute kidney injury with admission creatinine of 1.8, was 1.0 on 09/19/2019. 2. Metabolic acidosis. Urine drug screen was negative. This is in the setting of alcoholism. 3. Severe hyperkalemia on admission, potassium 7.3, now resolved. 4. Alcoholic pancreatitis. 5. Fatty liver. 6. History of thrombocytopenia. Did see Hematology/Oncology in the past and platelets were 70 in 02/2020. PLAN: 1. Continue hydration with bicarbonate. We will discontinue normal saline. 2. Check blood gas. 3. Check UA, serum osmolarity, CK, salicylate level and triglyceride. We will follow along with you. Thank you for requesting my opinion in the care and management of this patient. By: [id number] Sheldon Campa MD /nt
[2020-05-14 00:34] VITALS: BP 141/125
[2020-05-14 01:09] LABS: RDW-CV 15.7 % (10.5-14.5)
[2020-05-14 01:11] LABS: MCHC 32.1 g/dL (28.0-37.0)
[2020-05-14 01:12] LABS: CALCIUM 9.5 mg/dL (8.5-10.1); CREATININE 1.8 mg/dL (0.6-1.3); POTASSIUM 5.3 mmol/L (3.5-5.1)
[2020-05-14 01:17] LABS: ALBUMIN 5.4 g/dL (3.4-5.0); HEMATOCRIT 47.6 % (42.0-52.0); HEMOGLOBIN 15.3 gm/dL (14.0-18.0); MCH 35.2 pg (26.0-34.0); MCV 109.5 fL (80.0-100.0); MPV 10.6 fl. (7.2-11.1); NUCLEATED RBCS 0 /100WBC; PLATELET COUNT* 70 thou/uL (150-400); RBC 4.35 mil/uL (4.50-6.00); TOTAL BILIRUBIN 2.2 mg/dL (<0.1-1.0); TOTAL PROTEIN 10.3 g/dL (6.4-8.2); WBC 9.1 thou/uL (4.0-11.0)
[2020-05-14 01:23] LABS: APTT 27.8 Seconds (25.0-31.3); PROTIME 11.1 Seconds (9.20-11.50)
[2020-05-14 02:34] LABS: AMP/METHAMP Negative (Negative); BARBITURATES Negative (Negative); BENZODIAZEPINES Negative (Negative); COCAINE Negative (Negative); METHADONE Negative (Negative); OPIATES Negative (Negative); PCP Negative (Negative); THC Negative (Negative)
--- NOTE | 2020-05-14 02:40 | NUR ---
SPOUSE AT BEDSIDE, GOING TO GO HOME DARIO [phone]; PT RECEIVED BED PAIN, ASSISTED TO MAKE COMFORTABLE, CALL LIGHT WITHIN REACH WILL CONTINUE TO MONITOR
[2020-05-14 02:45] LABS: ABSOLUTE LYMPHOCYTES 0.6 thou/uL (0.8-5.3); ABSOLUTE MONOCYTES 0.5 thou/uL (0.0-1.2); ABSOLUTE NEUTROPHILS 7.9 thou/uL (1.6-8.1)
[2020-05-14 02:50] LABS: GIANT PLATELETS RARE; PLATELET ESTIMATE DECREASED
[2020-05-14 02:54] LABS: POLYCHROMASIA 1+
[2020-05-14 04:38] LABS: CREATININE 1.3 mg/dL (0.6-1.3)
[2020-05-14 04:42] LABS: ALBUMIN 4.6 g/dL (3.4-5.0); POTASSIUM 7.3 mmol/L (3.5-5.1); TOTAL BILIRUBIN 1.8 mg/dL (<0.1-1.0); TOTAL PROTEIN 8.4 g/dL (6.4-8.2)
--- NOTE | 2020-05-14 06:41 | NUR ---
PER PT REQUEST PERMISSION TO GIVE ALL MEDICAL INFORMATION TO THE PTS SPOUSE FELIZ EXCEPT STATED "I DO NOT WANT HER TO KNOW ABOUT THE ALCOHOL"; NURSE REPORTED THAT SHE WILL PASS THIS ON IN REPORT, AND THE PATIENT NEEDS TO STATE THIS TO HIS ON COMING NURSES; MONITOR TRACING ST RATE 120'S; PT PLACED IN A HOSPITAL BED; ORDERS STARTED ORDERED; CALL LIGHT WITHIN REACH WILL CONTINUE TO MONITOR
[2020-05-14 07:29] LABS: ALBUMIN 4.1 g/dL (3.4-5.0); CALCIUM 9.1 mg/dL (8.5-10.1); CREATININE 1.2 mg/dL (0.6-1.3); POTASSIUM 5.4 mmol/L (3.5-5.1); TOTAL BILIRUBIN 1.6 mg/dL (<0.1-1.0); TOTAL PROTEIN 8.1 g/dL (6.4-8.2)
--- NOTE | 2020-05-14 07:51 | NUR ---
CALLED DR. PALOMO AND NEPHROLOGY DR. IZQUIERDO INFORMED BOTH OF CRITICAL LAB C02 OF 6 AND K+ DOWN TO 5.4. NO NEW ORDERS FROM NEPHROLOGY. ASKED DR. PALOMO IF WE CAN DOWN GRADE PATIENTS STATUS FROM ICU TO TELE AND SHE SAID YES.
--- NOTE | 2020-05-14 08:59 | NUR ---
DR. PALOMO IN SEEING PT AT THIS TIME.
[2020-05-14 12:44] VITALS: BP 134/106
[2020-05-14 13:57] LABS: CALCIUM 8.9 mg/dL (8.5-10.1); CREATININE 1.3 mg/dL (0.6-1.3); POTASSIUM 4.1 mmol/L (3.5-5.1)
--- NOTE | 2020-05-14 16:16 | EKG ---
[place] [address] ELECTROCARDIOGRAM REPORT Name: JASPREET MCKEON Room: [address] ADM IN .R.#: [id number] Admission: 05/14/20 Attend Phys: Rolando Morel Discharge: Date of : 87 Date of Service: 05/14/20 0032 Report #: [id number] THIS REPORT FOR: //name// [facility] ED Test Date: 2020-05-14 Test Time: 00:32:11 Pat Name: JASPREET MCKEON Department: Room: [facility] Gender: M Tour Driver: SARAHY : 1985 Requested By: Teri Hedrick Order Number: [id number] MD: Ulices Altamirano Measurements Intervals [place] Rate: 125 P: 85 [place]: 137 QRS: 77 QRSD: 76 T: -58 QT: 303 QTc: 437 Interpretive Statements Sinus tachycardia Probable left atrial enlargement Possible LVH Nonspecific T abnormalities, inferior leads Baseline wander in lead(s) V2,V3 Compared to ECG 09/11/2019 19:21:18 No significant changes Electronically Signed On 05-14-2020 16:16:11 ORTHOPEDIC RADIOLOGIC TECHNOLOGIST by Ulices Altamirano [email or web address] <ELECTRONICALLY SIGNED> By: Ulices Altamirano MD, FAC 05/14/20 1616 Ulices Altamirano MD, FAC /EPI
--- NOTE | 2020-05-14 16:16 | EKG ---
[place] [address] ELECTROCARDIOGRAM REPORT Name: JASPREET MCKEON Room: [address] ADM IN .R.#: [id number] Admission: 05/14/20 Attend Phys: Rolando Morel Discharge: Date of : 87 Date of Service: 05/14/20 0453 Report #: [id number] THIS REPORT FOR: //name// [facility] ED Test Date: 2020-05-14 Test Time: 04:53:37 Pat Name: JASPREET MCKEON Department: Room: [facility] Gender: M Pulp House Supervisor: MR : 1985 Requested By: Teri Hedrick Order Number: [id number] MD: Ulices Altamirano Measurements Intervals [place] Rate: 108 P: 62 [place]: 166 QRS: 62 QRSD: 88 T: 34 QT: 341 QTc: 457 Interpretive Statements Sinus tachycardia Compared to ECG 05/14/2020 00:32:11 T-wave abnormality no longer present Electronically Signed On 05-14-2020 16:16:40 ICER MACHINE OPERATOR by Ulices Altamirano [email or web address] <ELECTRONICALLY SIGNED> By: Ulices Altamirano MD, [facility] 05/14/20 1616 0453 0453 Ulices Altamirano MD, [facility] /EPI
[2020-05-14 16:19] LABS: URINE BLOOD 1+ (Negative); URINE CLARITY CLEAR; URINE COLOR YELLOW; URINE GLUCOSE-RANDOM 1+ (Negative); URINE LEUKOCYTES-REFLEX NEGATIVE (Negative); URINE NITRITE-REFLEX NEGATIVE (Negative); URINE PROTEIN 2+ (Negative); URINE SPECIFIC GRAVITY 1.025 (1.005-1.030); URINE UROBILINOGEN 0.2 E.U./dl (0.2-1.0)
[2020-05-14 16:20] LABS: URINE KETONES 3+ (Negative)
[2020-05-14 16:24] LABS: ICTOTEST (BILI CONFIRMATORY) Negative (Negative); URINE BILIRUBIN 1+ (Negative)
[2020-05-14 16:25] LABS: HYALINE CASTS 0-3 Few /LPF (None Seen); MUCUS None Seen strn/LPF (None Seen); SQUAMOUS NONE SEEN /LPF (0-3)
[2020-05-14 16:26] LABS: BACTERIA-REFLEX None Seen /HPF (None Seen); CRYSTALS None Seen /LPF (None Seen); URINE RBC 0-2 Rare /HPF (0-2); URINE WBC-REFLEX None Seen /HPF (0-5)
[2020-05-14 16:27] LABS: MAGNESIUM 1.9 mg/dL (1.8-2.4)
[2020-05-14 16:29] VITALS: BP 139/104
--- NOTE | 2020-05-14 19:43 | NUR ---
RECEIVED REPORT FROM EMILY ZHOU. PT ARRIVED ON UNIT AT 1235. ASSUMED CARE. IV INTACT LEFT AC AND LEFT UPPER ARM. HEART MONITOR ATTACHED AT ST. MEDS GIVEN PER JUN. HOURLY ROUNDING PERFORMED. PT DOES NOT WANT TO BE TOLD THAT HE STARTED DRINKING AGAIN. ADMIT DONE. PT UP STAND BY ASSIST. LYING IN BED CURRENTLY. REPORTING PAIN IN EPIGASTRIC AREA. PER DR PALOMO WANTED PT TO STAY NPO DUE TO PANCREATITIS. VISITED THIS SHIFT. POSSIBLE PROCEDURE TOMORROW. GI FOLLOWING. CALL LIGHT WITHIN REACH. REPORT GIVEN TO SENIOR SPEECH PATHOLOGIST. SENIOR SPEECH PATHOLOGIST ASSUMED CARE.
[2020-05-14 20:00] VITALS: BP 144/102
[2020-05-15] VITALS: BP 131/98
[2020-05-15 04:00] VITALS: BP 123/90
[2020-05-15 04:43] LABS: HEMATOCRIT 40.1 % (42.0-52.0); HEMOGLOBIN 13.5 gm/dL (14.0-18.0); MCH 34.6 pg (26.0-34.0); MCHC 33.8 g/dL (28.0-37.0); MPV 11.5 fl. (7.2-11.1); RBC 3.92 mil/uL (4.50-6.00); RDW-CV 15.1 % (10.5-14.5); WBC 4.6 thou/uL (4.0-11.0)
[2020-05-15 05:11] LABS: ALBUMIN 3.1 g/dL (3.4-5.0); ALKALINE PHOSPHATASE 52 U/L (46-116); ANION GAP 8 mmol/L (7-16); BUN 7 mg/dL (7-18); CALCIUM 8.5 mg/dL (8.5-10.1); CHLORIDE 100 mmol/L (98-107); CO2 30 mmol/L (21-32); CREATININE 1.2 mg/dL (0.6-1.3); GLUCOSE 177 mg/dL (70-99); MAGNESIUM 1.6 mg/dL (1.8-2.4); PHOSPHORUS* < 0.5 mg/dL (2.5-4.9); SGOT 84 U/L (15-37); SGPT 27 U/L (30-65); SODIUM 138 mmol/L (136-145); TOTAL BILIRUBIN 2.2 mg/dL (<0.1-1.0); TOTAL PROTEIN 6.1 g/dL (6.4-8.2)
[2020-05-15 05:27] LABS: POTASSIUM 2.7 mmol/L (3.5-5.1)
[2020-05-15 05:44] LABS: MCV 102.4 fL (80.0-100.0)
[2020-05-15 08:02] VITALS: BP 117/88
--- NOTE | 2020-05-15 09:37 | NUR ---
ASSUMED CARE OF PT THIS AM AROUND 0715- SACK LIFTER IN PLACE ORDERED, TRACING ST- UPON ASSESSMENT PT NOTED TO BE RESTING IN BEDD, PT HARD TO ARROUSE THIS AM, NOTED TO BE LETHARGIC- UNABLE TO BE AWAKE LONG ENOUGH TO TAKE PO MEDICAITONS THIS AM- CONT OF B/B- ASSIST X1 WITH TRANSFERS FOR SAFETY- LCTA, RESP EVEN AND UN-LABORED- VSS, O2 SAT 96% ON RA- ABD FIRM/ROUND, BS HYPOACTIVE- IV NOTED TO LEFT FA INTACT, IV K+ AND BICARB INFUSSING PRESCIBED- IV NOTED NTO RIGHT FA INTACT AND SL- NPO STATUS IN PLACE INDICATED- NO NOTED THIS PAIN THIS AM- CALL LIGHT AND PERSONAL BELONGINGS WITH IN REACH- BED ALARM IN PLACE AND WORKING FOR PT SAFETY/NEEDS- ALL NEEDS MET AT THIS TIME
--- NOTE | 2020-05-15 12:23 | NUR ---
Pt is A&O, but drowsy. Resides at home with . Independent. Admitted for acute pancreatitis, ETOH abuse. No DME. No hx of HH or SNF. GI following. Goal is home. Following for dc needs.
[2020-05-15 13:18] VITALS: BP 121/92
[2020-05-15 16:00] VITALS: BP 128/97
[2020-05-15 20:00] VITALS: BP 129/86
[2020-05-15 20:02] LABS: MAGNESIUM 1.9 mg/dL (1.8-2.4)
[2020-05-15 20:16] LABS: POTASSIUM > 10.0 mmol/L (3.5-5.1)
[2020-05-16] VITALS: BP 133/99
[2020-05-16 04:00] VITALS: BP 144/96
[2020-05-16 05:55] LABS: CALCIUM 8.1 mg/dL (8.5-10.1); CREATININE 0.9 mg/dL (0.6-1.3); MAGNESIUM 2.1 mg/dL (1.8-2.4); PHOSPHORUS* 0.6 mg/dL (2.5-4.9); POTASSIUM 3.4 mmol/L (3.5-5.1)
[2020-05-16 07:51] VITALS: BP 150/105
--- NOTE | 2020-05-16 08:52 | NUR ---
ASSUMED CARE OF PT THIS AM AROUND 0715- CHILDREN'S ZOO CARETAKER IN PLACE ORDERED, TRACING ST- UPON ASSESSMENT PT NOTED TO BE RESTING IN BED- PT A&O 2-3, NOTED TO BE MORE ALERT THIS AM, BUT STILL DROWSY- INCONT OF B/B- ASSIST X1 WITH TRANSFERS- LCTA, RESP EVEN AND UN-LABORED- VSS, O2 SAT 97% ON RA- ABD FIRM/ROUND/NON-TENDER, BS X4 QUADS- PT REPORTED TO HAVE HAD BM ON PRIOR SHIFT- IV NOTED TO RIGHT FA INTACT AND SL; IV TO LEFT FA INTACT WITH NS AND IV ABT INFUSSING PRESCIBED- CIWA THIS AM NOTED TO BE 2- PT REPORTS DISCOMFORT IN BLADDER THIS AM- CALL LIGHT AND PERSONAL BELONGINGS WITH IN REACH- BED ALARM IN PLACE AND WORKING FOR PT SAFETY/NEEDS- ALL NEEDS MET AT THIS TIME
[2020-05-16 11:06] VITALS: BP 136/97
--- NOTE | 2020-05-16 11:52 | NUR ---
Monitor CIWAs, ativan as needed. Nephro and GI following.
[2020-05-16 16:14] VITALS: BP 142/98
--- NOTE | 2020-05-16 20:00 | NUR ---
RECEIVED REPORT AND ASSUMED CARE OF PT, ASSESSMENT COMPLETED. ASSISTED TO BR WITH UNSTEADY GAIT. PT HAS BEEN INCONT OF BOWEL AND BLADDER, ENCOURAGED TO WASH SELF UP. UNABLE TO PUT UNDERWEAR ON CORRECTLY. PT RETURNED TO BED WHERE HE IS ON HIS PHONE JOVANNA WITH 2 FRIENDS. TELEMETRY ON SHOWING SR. WILL CONT TO MONITOR AND ASSIST NEEDED.
[2020-05-16 21:00] VITALS: BP 160/105
[2020-05-17] VITALS: BP 150/99
[2020-05-17 04:00] VITALS: BP 145/99
[2020-05-17 04:48] LABS: HEMATOCRIT 29.6 % (42.0-52.0); MCH 35.7 pg (26.0-34.0); MCHC 34.2 g/dL (28.0-37.0); MCV 104.5 fL (80.0-100.0); MPV 10.8 fl. (7.2-11.1); RBC 2.84 mil/uL (4.50-6.00); RDW-CV 15.1 % (10.5-14.5); WBC 3.2 thou/uL (4.0-11.0)
[2020-05-17 05:00] LABS: ALBUMIN 2.5 g/dL (3.4-5.0); CALCIUM 7.8 mg/dL (8.5-10.1); CREATININE 0.9 mg/dL (0.6-1.3); POTASSIUM 3.6 mmol/L (3.5-5.1); TOTAL BILIRUBIN 1.6 mg/dL (<0.1-1.0); TOTAL PROTEIN 5.8 g/dL (6.4-8.2)
[2020-05-17 05:43] LABS: HEMOGLOBIN 10.1 gm/dL (14.0-18.0)
--- NOTE | 2020-05-17 06:32 | NUR ---
UP TO BR WITH SBA, GAIT SL UNSTEADY. PT HAVING COORDINATION PROBLEMS, MISSING URINAL WHEN VOIDING, UNABLE TO PUT BRIEFS ON CORRECTLY. TELEMETRY CONT TO SHOW SR. HS GOALS OF REST AND SAFETY ACHIEVED. HOURLY ROUNDING OBSERVED.
[2020-05-17 09:15] VITALS: BP 160/99
[2020-05-17 12:18] VITALS: BP 140/98
[2020-05-17 16:52] VITALS: BP 140/98
--- NOTE | 2020-05-17 17:19 | NUR ---
RECEIVED REPORT. ASSUMED CARE OF PT AROUND 0730. AM ASSESSMENT AND VITALS COMPLETED CHARTED. MEDS PER EMAR. PT TOLERATING DIET, FEELS HE CAN GO HOME. DISCHARGE ORDERS RECEIVED AND COMPLETED CHARTED. IV'S AND RESEARCH NEUROPSYCHOLOGIST REMOVED. ALL BELONGINGS GATHERED AND LEAVING WITH THE PT. PT AWARE OF DC INSTRUCTIONS. PT LEFT UNIT IN WC WITH NURSING STAFF. PT LEFT HOSPITAL IN CAR WITH MOTHER.
== END 2020-05-17 17:19 | disposition home or self-care (01) | DRG 438 ==
LOC: M.ERS 00:14 → M.TBA-ER 04:15 → M.ERS 04:15 → M.TBA-ER 04:57 → M.2W 05:14 → M.TBA-ER 07:53 → M.2W 12:35
PROVIDERS: Family Medicine; Internal Medicine Nephrology; Personal Emergency Response Attendant; ADMIT Internal Medicine; ATTEND Internal Medicine
DX: K85.20 Alcohol induced acute pancreatitis without necrosis or infection (principal); N17.0 Acute kidney failure with tubular necrosis; E87.2 Acidosis; F10.239 Alcohol dependence with withdrawal, unspecified; E87.5 Hyperkalemia; D69.6 Thrombocytopenia, unspecified; Y90.9 Presence of alcohol in blood, level not specified; E87.6 Hypokalemia; E83.42 Hypomagnesemia; I10 Essential (primary) hypertension; K70.10 Alcoholic hepatitis without ascites; K76.0 Fatty (change of) liver, not elsewhere classified; F10.20 Alcohol dependence, uncomplicated; Z20.822 Contact with and (suspected) exposure to COVID-19; Z90.49 Acquired absence of other specified parts of digestive tract; Z28.21 Immunization not carried out because of patient refusal

== ENCOUNTER 2021-03-01 17:42 | Inpatient (IN) | payer OTHER ==
[~2021-03-01] VITALS: Ht 170.2 cm; Wt 67.3 kg
[2021-03-01 17:57] VITALS: BP 122/95
[2021-03-01] MEDS ORDERED: [UNRECOGNIZED DRUG - REMARK] (18:04)
[2021-03-01 18:44] LABS: ABSOLUTE LYMPHOCYTES 0.5 thou/uL (0.8-5.3); ABSOLUTE MONOCYTES 0.6 thou/uL (0.0-1.2); ABSOLUTE NEUTROPHILS 5.6 thou/uL (1.6-8.1); BASOPHILS 0.2 %; EOSINOPHILS 0.1 %; HEMATOCRIT 43.8 % (42.0-52.0); HEMOGLOBIN 14.8 gm/dL (14.0-18.0); MCH 34.5 pg (26.0-34.0); MCHC 33.8 g/dL (28.0-37.0); MCV 101.9 fL (80.0-100.0); MONOCYTES 8.9 %; MPV 10.6 fl. (7.2-11.1); NUCLEATED RBCS 0 /100WBC; POLYS 82.8 %; WBC 6.8 thou/uL (4.0-11.0)
[2021-03-01 18:53] LABS: CALCIUM 10.2 mg/dL (8.5-10.1); CREATININE 1.4 mg/dL (0.6-1.3); POTASSIUM 3.8 mmol/L (3.5-5.1)
[2021-03-01 19:03] LABS: ALBUMIN 4.9 g/dL (3.4-5.0); TOTAL BILIRUBIN 2.3 mg/dL (<0.1-1.0); TOTAL PROTEIN 10.1 g/dL (6.4-8.2)
[2021-03-01 19:06] LABS: PLATELET COUNT* 44 thou/uL (150-400)
[2021-03-01 19:43] LABS: APTT 25.9 Seconds (25.0-31.3); INR 1.1; PROTIME 11.2 Seconds (9.20-11.50)
[2021-03-01 21:15] LABS: URINE BLOOD TRACE (Negative); URINE CLARITY CLEAR; URINE COLOR YELLOW; URINE GLUCOSE-RANDOM NEGATIVE (Negative); URINE LEUKOCYTES-REFLEX NEGATIVE (Negative); URINE NITRITE-REFLEX NEGATIVE (Negative); URINE PROTEIN 2+ (Negative); URINE UROBILINOGEN 0.2 E.U./dl (0.2-1.0)
[2021-03-01 21:23] LABS: AMP/METHAMP Negative (Negative); BARBITURATES Negative (Negative); BENZODIAZEPINES Negative (Negative); COCAINE Negative (Negative); METHADONE Negative (Negative); OPIATES POSITIVE (Negative); PCP Negative (Negative); THC Negative (Negative)
[2021-03-01 21:28] LABS: ICTOTEST (BILI CONFIRMATORY) Negative (Negative); URINE BILIRUBIN 2+ (Negative); URINE KETONES 3+ (Negative)
[2021-03-01 21:31] LABS: ACETEST (KETONE CONFIRMATORY) Moderate (Negative)
[2021-03-01 21:32] LABS: BACTERIA-REFLEX 1-9 Few /HPF (None Seen); CASTS None Seen /LPF (None Seen); CRYSTALS None Seen /LPF (None Seen); MUCUS 0-3 Light strn/LPF (None Seen); SQUAMOUS 0-3 Few /LPF (0-3); URINE RBC 0-2 Rare /HPF (0-2); URINE WBC-REFLEX 0-5 Rare /HPF (0-5)
[2021-03-02 00:35] VITALS: BP 145/95
[2021-03-02 04:35] VITALS: BP 144/96
[2021-03-02 08:35] VITALS: BP 132/96
[2021-03-02 08:51] LABS: ABSOLUTE EOSINOPHILS 0.1 thou/uL (0.0-0.7); ABSOLUTE LYMPHOCYTES 0.7 thou/uL (0.8-5.3); ABSOLUTE MONOCYTES 0.5 thou/uL (0.0-1.2); ABSOLUTE NEUTROPHILS 3.2 thou/uL (1.6-8.1); BASOPHILS 0.3 %; EOSINOPHILS 1.1 %; HEMATOCRIT 37.5 % (42.0-52.0); LYMPHOCYTES 16.5 %; MCH 34.4 pg (26.0-34.0); MCHC 33.4 g/dL (28.0-37.0); MONOCYTES 10.2 %; MPV 9.2 fl. (7.2-11.1); NUCLEATED RBCS 0 /100WBC; POLYS 71.9 %; RBC 3.64 mil/uL (4.50-6.00); RDW-CV 13.6 % (10.5-14.5); WBC 4.5 thou/uL (4.0-11.0)
[2021-03-02 08:52] LABS: HEMOGLOBIN 12.5 gm/dL (14.0-18.0)
[2021-03-02 08:54] LABS: PLATELET COUNT* 22 thou/uL (150-400)
[2021-03-02 09:12] LABS: ALBUMIN 3.6 g/dL (3.4-5.0); CALCIUM 8.6 mg/dL (8.5-10.1); POTASSIUM 3.7 mmol/L (3.5-5.1); TOTAL BILIRUBIN 1.9 mg/dL (<0.1-1.0); TOTAL PROTEIN 7.6 g/dL (6.4-8.2)
[2021-03-02 11:11] LABS: PLATELET ESTIMATE DECREASED
--- NOTE | 2021-03-02 11:40 | EKG ---
[place] [address] ELECTROCARDIOGRAM REPORT Name: JASPREET MCKEON Room: [place] [address] ADM IN [facility]#: [id number] Admission: 03/01/21 Attend Phys: Bryon Byrnes Discharge: Date of : 87 Date of Service: 03/01/211814 Report #: [id number] THIS REPORT FOR: //name// [facility] ED Test Date: 2021-03-01 Test Time: 18:15:27 Pat Name: JASPREET MCKEON Department: Room: [facility] Gender: M Director Data: OLIVER : 1985 Requested By: Luna Pastrana Order Number: [id number] MD: Spencer Trivedi Measurements Intervals [place] Rate: 114 P: -23 NM: 113 QRS: 71 QRSD: 87 T: -87 QT: 433 QTc: 597 Interpretive Statements Sinus tachycardia Abnormal T, consider ischemia, diffuse leads Prolonged QT interval Baseline wander in lead(s) V1 Compared to ECG 05/14/2020 04:53:37 T-wave abnormality now present Possible ischemia now present Prolonged QT interval now present Electronically Signed On 03-02-2021 11:40:02 [employer]UFA[employer]URING [employer]ATION [employer]INE[employer] by Spencer Trivedi [email or web address] <ELECTRONICALLY SIGNED> By: Spencer Trivedi MD, FACC 03/02/21 1140 14 14 Spencer Trivedi MD, FAC /EPI
[2021-03-02 12:14] VITALS: BP 132/96
[2021-03-02 16:30] VITALS: BP 125/92
[2021-03-02 20:00] VITALS: BP 141/96
[2021-03-03] VITALS: BP 132/88
[2021-03-03 03:54] LABS: HEMOGLOBIN 11.2 gm/dL (14.0-18.0); MCH 34.6 pg (26.0-34.0); MCHC 33.9 g/dL (28.0-37.0); MCV 102.2 fL (80.0-100.0); MPV 8.7 fl. (7.2-11.1); RBC 3.23 mil/uL (4.50-6.00); RDW-CV 13.5 % (10.5-14.5)
[2021-03-03 04:00] VITALS: BP 135/96
[2021-03-03 04:16] LABS: ALBUMIN 3.2 g/dL (3.4-5.0); CALCIUM 8.1 mg/dL (8.5-10.1); CREATININE 0.8 mg/dL (0.6-1.3); MAGNESIUM 1.7 mg/dL (1.8-2.4); POTASSIUM 3.1 mmol/L (3.5-5.1); TOTAL BILIRUBIN 2.2 mg/dL (<0.1-1.0); TOTAL PROTEIN 6.8 g/dL (6.4-8.2)
[2021-03-03 08:45] VITALS: BP 143/104
[2021-03-03] MEDS ORDERED: COREG6.25 MG PO (10:30)
[2021-03-03 11:34] VITALS: BP 143/104
[2021-03-03] MEDS ORDERED: PANCREAZE DR 41 EACH PO (12:46)
[2021-03-03 13:14] VITALS: BP 143/104
== END 2021-03-03 13:30 | disposition home or self-care (01) | DRG 438 ==
LOC: M.ERS 17:42 → M.ORTHSURG 20:35 → M.TBA-ER 20:35 → M.ORTHSURG 03-02 12:30
PROVIDERS: Internal Medicine; Nurse Practitioner Family; ADMIT Internal Medicine; ATTEND Internal Medicine
DX: K85.20 Alcohol induced acute pancreatitis without necrosis or infection (principal); N17.0 Acute kidney failure with tubular necrosis; E87.2 Acidosis; Z90.49 Acquired absence of other specified parts of digestive tract; D69.6 Thrombocytopenia, unspecified; K86.1 Other chronic pancreatitis; Z20.822 Contact with and (suspected) exposure to COVID-19